=== PATIENT | male | born 1935 | race Native Hawaiian/Other Pacific Islander ===

== ENCOUNTER 2018-06-30 15:15 | Emergency (ER) | payer MEDICARE ==
[2018-06-30 15:31] VITALS: TEMP 98.4
[2018-06-30] MEDS ORDERED: Sodium Chloride 0.9% 1,000 ML IV ONE (15:51)
[2018-06-30] MEDS ORDERED: Lidocaine 80 MG in Sodium Chloride 0.9% 100 ML IV ONE ×2 (15:51→16:15)
[2018-06-30] MEDS ORDERED: Sodium Chloride 0.9% 1,000 ML ONE (16:02)
[2018-06-30 16:19] LABS: BASO # 0.1 K/uL (0.0-0.2); EOS # 0.1 K/uL (0.0-0.7); EOS % 2.1 % (0.0-4.0); HEMOGLOBIN 9.4 g/dL (12.0-18.0); LYMPH # 2.1 K/uL (1.0-4.3); LYMPH % 37.4 % (20.0-40.0); MEAN CELL VOLUME 70.7 fL (80.0-94.0); MEAN CORPUSCULAR HEMOGLOBIN 21.4 pg (27.0-31.0); MEAN CORPUSCULAR HGB CONC 30.3 g/dL (33.0-37.0); MEAN PLATELET VOLUME 9.9 fL (7.2-11.7); MONO # 0.8 K/uL (0.0-0.8); MONO % 15.1 % (0.0-10.0); NEUT # 2.5 K/uL (1.8-7.0); NEUT % 44.4 % (50.0-75.0); NRBC % 0.6 % (0.0-2.0); RBC 4.38 Mil/uL (4.40-5.90); RED CELL DISTRIBUTION WIDTH 19.8 % (11.5-14.5); WHITE BLOOD COUNT 5.6 K/uL (4.8-10.8)
[2018-06-30 16:30] LABS: ALB/GLOB RATIO 1.5 (1.0-2.1); ALBUMIN 4.3 g/dL (3.5-5.0); CALCIUM 8.9 mg/dl (8.6-10.4)
--- NOTE | 2018-06-30 16:31 | C.PDOC ---
History Of Present Illness 83yo male, comes to ER reporting blood in his urine and right flank as well as lower abdominal pain since last night. He states his urine is blood tinged; patient denies any testicular pain or swelling. Patient has a history of chronic kidney disease but denies any renal stones. No additional complaints. PMD: Dr. Galloway Time Seen by Provider: 06/30/18 15:48 Chief Complaint (Nursing): Male Genitourinary History Per: Patient History/Exam Limitations: no limitations Onset/Duration Of Symptoms: Days Associated Symptoms: Urinary Symptoms Additional History Per: Patient Past Medical History Reviewed: Historical Data, Nursing Documentation, Vital Signs Vital Signs: Last Vital Signs Temp 98.4 F 06/30/18 15:29 Pulse 93 H 06/30/18 15:29 Resp 20 06/30/18 15:29 BP 148/71 06/30/18 15:29 Pulse Ox 94 L 06/30/18 15:29 - Medical History PMH: No Chronic Diseases Surgical History: No Surg Hx Family History: States: No Known Family Hx - Social History Hx Alcohol Use: No Hx Substance Use: No Review Of Systems Except As Marked, All Systems Reviewed And Found Negative. Constitutional: Negative for: Fever, Chills Cardiovascular: Negative for: Chest Pain Respiratory: Negative for: Shortness of Breath Genitourinary: Positive for: Hematuria. Negative for: Dysuria, Frequency, Scrotal Pain Musculoskeletal: Positive for: Back Pain Physical Exam - Physical Exam Appears: Non-toxic, No Acute Distress Skin: Normal Color, Warm, Dry Head: Atraumatic, Normacephalic Eye(s): bilateral: Normal Inspection Oral Mucosa: Moist Neck: Normal ROM, Supple Chest: Symmetrical Cardiovascular: Rhythm Regular Respiratory: Normal Breath Sounds Gastrointestinal/Abdominal: Normal Exam, Soft, No Tenderness Back: CVA Tenderness (right), No Vertebral Tenderness, No Paraspinal Tenderness Extremity: Normal ROM, No Pedal Edema Neurological/Psych: Oriented x3 ED Course And Treatment - Laboratory Results Result Diagrams: 06/30/18 16:02 06/30/18 16:02 O2 Sat by Pulse Oximetry: 97 (RA) Pulse Ox Interpretation: Normal - CT Scan/US CT abdomen/pelvis Other Rad Studies (CT/US): Read By Radiologist, Radiology Report Reviewed CT/US Interpretation: FINDINGS: LOWER THORAX: Unremarkable. LIVER: U nremarkable. No gross lesion or ductal dilatation. GALLBLADDER AND BILE DUCTS: Unremarkable. PANCREAS: Unremarkable. No gross lesion or ductal dilatation. SPLEEN: Unremarkable. ADRENALS: Unremarkable. No mass. KIDNEYS AND URETERS: Unremarkable. No hydronephrosis. No solid mass. VASCULATURE: Unremarkable. No aortic aneurysm. Atherosclerotic calcification and mural plaque present. Findi ngs are seen throughout the aorta. BOWEL: Diverticulosis without an acute inflammatory component or other associated pathologic process. APPENDIX: No abnormalities to suggest acute appendicitis. No right lower quadrant inflammatory processes identified. PERITONEUM: Unremarkable. No free fluid. No free air. LYMPH NODES: Unremarkable. No enlarged lymph nodes. BLADDER: Diffuse bladder wall thickening, suboptimal distention of the bladder. Cystitis should be considered. REPRODUCTIVE: Enlarged prostate 4 x 4 x 5.8 x 5.6 cm. BONES: No acute fracture. OTHER FINDINGS: None. IMPRESSION: Diffuse bladder wall thickening, likely cystitis. Additional benign and/or incidental findings described above. Medical Decision Making Medical Decision Making: Impression: Right CVA tenderness, right lower abdominal pain Plan: -- Labs -- Urinalysis -- IV Fluids -- Lidocaine 80mg IV -- CT Abdomen/Pelvis w/o contrast 1744 - patient states improvement. Will discharge home to follow up with doctor within 2 days. Disposition - Disposition Referrals: Sherry Xavier MD [Staff Provider] - Disposition Time: 17:45 Condition: STABLE Additional Instructions: follow up with your doctors within 2 days call to make an appointment take medications as prescribed return to ER if symptoms worsens or progress Prescriptions: Sulfamethoxazole/Trimethoprim [Bactrim DS 800 mg-160 mg] 1 tab PO BID #20 tab Instructions: Urinary Tract Infections in Adults, Chronic Kidney Disease Forms: [facility] ([place]i), General Discharge Instructions - Clinical Impression Clinical Impression: UTI (urinary tract infection), Renal insufficiency - Scribe Statement The provider has reviewed the documentation as recorded by the Julius Cuevas Provider Attestation: All medical record entries made by the Julius were at my direction and personally dictated by me. I have reviewed the chart and agree that the record accurately reflects my personal performance of the history, physical exam, medical decision making, and the department course for this patient. I have also personally directed, reviewed, and agree with the discharge instructions and disposition.
[2018-06-30 16:47] LABS: URINE BILIRUBIN NEGATIVE (NEGATIVE); URINE BLOOD 1+ (NEGATIVE); URINE CLARITY Clear (Clear); URINE COLOR Yellow (YELLOW); URINE GLUCOSE (UA) NORMAL (Normal); URINE LEUKOCYTE ESTERASE NEG Leu/uL (Negative); URINE PROTEIN NEGATIVE (NEGATIVE); URINE UROBILINOGEN NORMAL mg/dL (0.2-1.0)
[2018-06-30 17:17] VITALS: BP 136/69; PULSE 73; RESP 19; O2SAT 97
--- NOTE | 2018-06-30 17:21 | CT ---
Date of service: 06/30/2018 PROCEDURE: CT Abdomen and Pelvis without intravenous contrast HISTORY: Hematuria 2 days duration. Relevant medical history: Chronic kidney disease, stage III. COMPARISON: 02/15/2018 renal ultrasound. Summary of findings on the comparison examination: Bilateral echogenic renal parenchyma may be seen in the setting of medical renal disease. TECHNIQUE: Unenhanced. Neither IV nor oral contrast administered Radiation dose: Total exam DLP = 266.00 mGy-cm. This CT exam was performed using one or more of the following dose reduction techniques: Automated exposure control, adjustment of the mA and/or kV according to patient size, and/or use of iterative reconstruction technique. FINDINGS: LOWER THORAX: Unremarkable. LIVER: Unremarkable. No gross lesion or ductal dilatation. GALLBLADDER AND BILE DUCTS: Unremarkable. PANCREAS: Unremarkable. No gross lesion or ductal dilatation. SPLEEN: Unremarkable. ADRENALS: Unremarkable. No mass. KIDNEYS AND URETERS: Unremarkable. No hydronephrosis. No solid mass. VASCULATURE: Unremarkable. No aortic aneurysm. Atherosclerotic calcification and mural plaque present. Findings are seen throughout the aorta BOWEL: Diverticulosis without an acute inflammatory component or other associated pathologic process. APPENDIX: No abnormalities to suggest acute appendicitis. No right lower quadrant inflammatory processes identified. PERITONEUM: Unremarkable. No free fluid. No free air. LYMPH NODES: Unremarkable. No enlarged lymph nodes. BLADDER: Diffuse bladder wall thickening, suboptimal distention of the bladder. Cystitis should be considered. REPRODUCTIVE: Enlarged prostate 4 x 4 x 5.8 x 5.6 cm. BONES: No acute fracture. OTHER FINDINGS: None. IMPRESSION: Diffuse bladder wall thickening, likely cystitis. Additional benign and/or incidental findings described above.
[2018-06-30] MEDS ORDERED: Tmp-Smz 800 mg-160 mg DS Tab PO STA (17:33)
[2018-06-30] MEDS ORDERED: Tmp-Smz 800 mg-160 mg DS Tab ONE (17:44)
== END 2018-06-30 18:17 | disposition home or self-care (01) ==
LOC: C.ER 15:15
DX: N39.0 Urinary tract infection, site not specified (principal); N28.9 Disorder of kidney and ureter, unspecified
CPT/HCPCS: 74176; 80053; 81001; 83690; 85025; 87086; 96360; 96361; 99285; J2001; J7030

== ENCOUNTER 2018-08-22 06:35 | Day surgery (SDC) | payer MEDICARE ==
[2018-08-16 12:38] VITALS: BMI 21.9
[2018-08-22] MEDS ORDERED: cefTRIAXone 1 gm 1 GM/100 ML BAG IVPB ONE (07:35)
[2018-08-22] MEDS ORDERED: Lidocaine 2% Jelly (Uro-Jet) ONE (07:36)
[2018-08-22] MEDS ORDERED: Iohexol 240 (50 ml) ONE (07:36)
[2018-08-22] MEDS ORDERED: Propofol 10 mg/ml Inj (20 ML) ONE (08:13)
[2018-08-22] MEDS ORDERED: Midazolam 2 MG/2 ML VIAL ONE (08:13)
--- NOTE | 2018-08-22 09:00 | PCM.SURG1 ---
Surgeon's Initial Post Op Note - Surgeon's Notes Surgeon: gonzalo MAT[employer]: none Type of Anesthesia: General LMA Pre-Operative Diagnosis: hematuria Operative Findings: bph. bleeding of prostatic origin. cystitis Post-Operative Diagnosis: same Operation Performed: cysto, evac of clots. bilat rtg pyelogram. bladder bx and fulg. eua Specimen/Specimens Removed: urine. bladder bx Estimated Blood Loss: EBL {In ML}: 0 Blood Products Given: N/A Date of Surgery/Procedure: 08/22/18 Time of Surgery/Procedure: 08:50
[2018-08-22] MEDS ORDERED: Lactated Ringer's 1,000 ML IV SCH (09:15)
[2018-08-22] MEDS ORDERED: Oxycodone/Acetaminophen 5/325 mg Tab PO ONE (11:30)
[2018-08-22 12:01] VITALS: RESP 18; TEMP 97.4
[2018-08-22 12:12] VITALS: BP 135/63; PULSE 83; O2SAT 98
--- NOTE | 2018-08-22 16:43 | RAD ---
Date of service: 08/22/2018 HISTORY: HEMATURIA COMPARISON: CT abdomen and pelvic report 06/30/2018 TECHNIQUE: 1 view obtained. FINDINGS: BOWEL: Extensive stool retention. No bowel obstruction appreciated.. Greater than that suggested on the hardwood sawyer 06/30/2018 CT study This stool impedes optimal evaluation for urolithiasis. BONES: Mild spondylosis lumbar spine. Bilateral hip arthrosis. OTHER FINDINGS: Bilateral hemipelvic calcifications grossly appear similar to the prior hardwood sawyer. IMPRESSION: Limited exam for assessing urolithiasis. Due to the obscuring stool/gas/overlying small large bowel loops. Interval increase stool retention right colon. No bowel obstruction. Other findings as above.
--- NOTE | 2018-08-22 16:44 | RAD ---
PROCEDURE: HISTORY: As above COMPARISON: None TECHNIQUE: Total fluoroscopic time utilized during the procedure: 11.0 seconds ; 0.12293 mGy cm 2 FINDINGS: Submitted images from the current procedure: 8 images including the fluoro time dose summary report Please refer to the physician's notes performing the procedure. IMPRESSION: Less than 1 hour fluoroscopic time utilized during performance of the procedure
--- NOTE | 2018-08-24 06:13 | OP ---
PROCEDURE DATE: 08/22/2018 UROLOGY OPERATIVE REPORT PREOPERATIVE DIAGNOSIS: Hematuria. POSTOPERATIVE DIAGNOSES: 1. Hematuria. 2. Bleeding of prostatic origin. 3. Cystitis. OPERATING SURGEON: Sherry Xavier MD PROCEDURES: 1. Cystoscopy. 2. Fulguration of prostatic bleeding. 3. Bilateral retrograde ureteropyelogram. 4. Evacuation of clots. PROCEDURE As follows: The patient was placed in lithotomy position. Genitalia prepped and draped sterilely. Perioperative antibiotics were administered by the anesthesiologist. Anesthesia was administered by the anesthesiologist. Procedure was performed under video endoscopic control as well as under fluoroscopic control. A total of 11 seconds of fluoroscopic time was utilized. A total of 11 seconds of fluoroscopy was utilized. The patient was in lithotomy position. A 22-Japanese cystoscope sheath was introduced under direct vision under video endoscopic control. Urethra, prostate, and bladder were inspected with 30-degree and 70-degree lenses. FINDINGS: There was no stricture in the anterior urethra. There was evidence of moderate prostatic hypertrophy. Prostatic urethra was 4 cm in length and occlusive. There were large veins on the surface of the prostate. There was mild to moderate bleeding of the prostatic with contact bleeding from the surface of the prostate. There was no bladder tumor identified. There was no bladder stone identified. The ureteral orifices were normal in position and shape. Occlusive tip retrograde pyelogram was performed. Iodinated contrast was instilled via cone-tip catheter into the ureteral orifices. Findings: There was no evidence of obstruction or filling defect within the ureters or collecting system. The bleeding of the prostate was fulgurated with ball electrode and electrocautery. The bladder was reinspected with 30-degree lens, confirmed the above findings. An area of erythema within the bladder which appeared to be inflammatory was focal in nature. Biopsy was obtained. Fulguration of biopsy site was performed with ball electrode and electrocautery. The cystoscopic sheath removed. Skinner catheter was inserted. Bladder drainage was clear. Exam under anesthesia was performed. There was no abnormal pelvic mass, fixation, induration. Prostate was enlarged approximately 30 g in size, without fixation, induration, or nodularity. The patient tolerated the procedure without complication. Sherry MD Duc cc: Jake Galloway MD
== END 2018-08-22 12:00 | disposition home or self-care (01) ==
LOC: C.SDS 06:35
PROVIDERS: ATTEND Urology
DX: N30.91 Cystitis, unspecified with hematuria (principal); N40.0 Benign prostatic hyperplasia without lower urinary tract symptoms; I12.9 Hypertensive chronic kidney disease with stage 1 through stage 4 chronic kidney disease, or unspecified chronic kidney disease; N18.3 Chronic kidney disease, stage 3 (moderate); M10.9 Gout, unspecified; D64.9 Anemia, unspecified; Z98.890 Other specified postprocedural states; Z90.49 Acquired absence of other specified parts of digestive tract; Z79.899 Other long term (current) drug therapy
CPT/HCPCS: 52001; 52005; 52214; 74018; 87086; 88104; 88305; C1758; J0696; J3010; Q9966